=== PATIENT | male | born 1965 | race Caucasian/White ===

== ENCOUNTER 2017-05-22 17:54 | Emergency (ER) | payer BC, OTHER ==
[2017-05-22 18:19] VITALS: BP 125/69; PULSE 85; TEMP 98.7; BMI 32.3
[2017-05-22] MEDS ORDERED: SODIUM CHLORIDE 1,000 ML IV STA (20:30)
[2017-05-22] MEDS ORDERED: FAMOTIDINE 20 MG/50 ML IVPB 20 MG/50 ML MG IVPB ONE ×2 (20:30→21:06)
--- NOTE | 2017-05-22 20:32 | PDOC ---
History of Present Illness - General Chief Complaint: Pain, Acute Stated Complaint: NAUSEA/VOMITING Time Seen by Provider: 05/22/17 20:14 History Source: Patient - History of Present Illness Initial Comments: 05/22/17 20:52 52 year old male with NVD and RLQ abdominal pain x 1 day after eating cooked food brought from [place] yesterday. denies fever/ chills, urinary symptoms, chest pain, diaphoresis, dizziness, headache Past History - Past Medical History Allergies/Adverse Reactions: Allergies Allergy/AdvReac Type Severity Reaction Status Date / Time Penicillins Allergy Verified 05/22/17 18:15 Home Medications: Ambulatory Orders [place]-3/Dha/Epa/Fish Oil [Fish Oil Dr 500 mg Softgel] 500 mg PO DAILY 08/05/15 Naproxen [Naprosyn -] 500 mg PO BID 09/04/15 Atorvastatin Ca [Lipitor] 20 mg PO DAILY tablet 11/25/15 Anemia: No Asthma: No Cancer: No Cardiac Disorders: No CVA: No COPD: No CHF: No Dementia: No Diabetes: No GI Disorders: No Disorders: No HTN: No Hypercholesterolemia: Yes Liver Disease: No Seizures: No Thyroid Disease: No - Surgical History Appendectomy: Yes Orthopedic Surgery: Yes (BACK SURGERY AND WRIST) - Immunization History Immunization Up to Date: Yes - Suicide/Smoking/Psychosocial Hx Smoking Status: No Smoking History: Never smoked Number of Cigarettes Smoked Daily: 0 Hx Alcohol Use: No Drug/Substance Use Hx: No Substance Use Type: None Hx Substance Use Treatment: No Review of Systems - Review of Systems Able to Perform ROS?: Yes Is the patient limited [place]ian proficient: No Constitutional: No: Symptoms Reported, See HPI, Chills, Diaphoresis, Fever, Loss of Appetite, Malaise, Night Sweats, Weakness, Weight Stable, Unintentional Wgt. Loss, Unexplained wgt Loss, Other ABD/GI: Yes: Diarrhea, Nausea, Vomiting, Abdominal cramping. No: Symptoms Reported, See HPI, Abdominal Distended, Abd. Pain w/ defecation, Blood Streaked Bowels, Constipated, Difficulty Swallowing, Poor Appetite, Poor Fluid Intake, Rectal Bleeding, Indigestion, Tarry Stools, Other : Yes: Testicular Pain (worse with cough or lifting for several months. no acute pain at this time ) Neurological: No: Symptoms reported, See HPI, Headache, Numbness, Paresthesia, Pre-Existing Deficit, Seizure, Tingling, Tremors, Weakness, Unsteady Gait, Ataxia, Dizziness, Other *Physical Exam - Vital Signs Last Vital Signs Temp Pulse Resp BP Pulse Ox 98.7 F 85 19 125/69 98 05/22/17 18:15 05/22/17 18:15 05/22/17 18:15 05/22/17 18:15 05/22/17 18:15 - Physical Exam General Appearance: Yes: Apparent Distress Respiratory/Chest: positive: Lungs Clear, Normal Breath Sounds Gastrointestinal/Abdominal: positive: Soft, Other (hyperactive bowel sounds, minimal RLQ tenderness) Male Genitalia: positive: normal genitalia, inguinal hernia (questionable right inguinal hernia. no obvious hernia appreciated. ), other (+ cremasteric reflex) . negative: testicular tenderness, testicular mass Extremity: positive: Normal Capillary Refill, Normal Inspection, Normal Range of Motion Integumentary: positive: Normal Color, Dry, Warm Neurologic: positive: Fully Oriented, Alert, Normal Mood/Affect Heart Score/ECG Review - ECG Intrepretation Rhythm: Regular Rhythm Comment:: 05/22/17 21:28 NSR: 79 bpm ED Treatment Course - LABORATORY CBC & Chemistry Diagram: 05/22/17 20:30 05/22/17 20:30 Progress Note - Progress Note Progress Note: A: gastroenteritis P: CBC CMP Lipase UA IVF zofran Famotidine *DC/Admit/Observation/Transfer Diagnosis at time of Disposition: Acute gastroenteritis - Discharge Dispostion Disposition: HOME - Referrals Referrals: Cathy Sena MD [Primary Care Provider] - Call tomorrow - Patient Instructions Printed Discharge Instructions: Viral Gastroenteritis, Gastroenteritis Diet Additional Instructions: drink plenty of fluids. (smart water, Gatorade. ) start a BRAT (Bananas, rice, apples, toast) diet - Post Discharge Activity Forms/Work/School Notes: Back to Work
[2017-05-22] MEDS ORDERED: ONDANSETRON 4 MG/2 ML VIAL IVPUSH ONE (20:45)
[2017-05-22 20:58] LABS: BASO % 0.2 % (0-2.0); EOS % 0.2 % (0-4.5); HEMATOCRIT 44.2 % (35.4-49); HEMOGLOBIN 15.1 GM/dL (11.7-16.9); LYMPH % 19.4 % (8-40); MCH 30.1 pg (25.7-33.7); MCHC 34.3 g/dl (32.0-35.9); MEAN PLT VOLUME 8.5 fl (7.5-11.1); MONO % 8.6 % (3.8-10.2); NEUT % 71.6 % (42.8-82.8); PLATELET COUNT 198 K/MM3 (134-434); RBC 5.02 M/mm3 (4.00-5.60); RDW 13.2 % (11.9-15.9); WHITE BLOOD COUNT 7.4 K/mm3 (4.0-10.0)
[2017-05-22 21:39] LABS: ANION GAP 6 (8-16); BILIRUBIN,TOTAL 0.8 mg/dL (0.2-1.0); BLOOD UREA NITROGEN 19 mg/dL (7-18); CALCIUM 8.2 mg/dL (8.5-10.1); CHLORIDE 105 mmol/L (98-107); CO2 26 mmol/L (21-32); CREATININE 0.8 mg/dL (0.7-1.3); GLUCOSE,RANDOM 93 mg/dL (74-106); LIPASE 95 U/L (73-393); SGPT/ALT 49 U/L (12-78); SODIUM 137 mmol/L (136-145); TOT PROT 7.2 g/dl (6.4-8.2)
[2017-05-22 21:40] LABS: ALK PHOS 90 U/L (45-117)
[2017-05-22 21:44] LABS: URINE APPEARANCE SLCLOUDY; URINE BILIRUBIN NEGATIVE (NEGATIVE); URINE BLOOD NEGATIVE (NEGATIVE); URINE COLOR AMBER; URINE GLUCOSE (UA) NEGATIVE (NEGATIVE); URINE KETONE NEGATIVE (NEGATIVE); URINE LEUK ESTERASE NEGATIVE (NEGATIVE); URINE NITRITE NEGATIVE (NEGATIVE)
[2017-05-22 21:47] LABS: POTASSIUM 3.9 mmol/L (3.5-5.1)
[2017-05-22 21:48] LABS: SGOT/AST 25 U/L (15-37)
[2017-05-22 22:03] LABS: URINE PROTEIN 1+ (NEGATIVE)
[2017-05-22 22:45] LABS: URINE MUCUS MANY
--- NOTE | 2017-05-23 15:11 | EKG ---
Test Reason : Blood Pressure : / mmHG Vent. Rate : 079 BPM Atrial Rate : 079 BPM P-R Int : 194 ms QRS Dur : 086 ms QT Int : 366 ms P-R-T Axes : 049 012 028 degrees QTc Int : 419 ms NORMAL SINUS RHYTHM NORMAL ECG NO PREVIOUS ECGS AVAILABLE Confirmed by Marcos Abbott MD ([id number]) on 05/23/2017 3:10:55 PM Referred By: Confirmed By:Marcos Abbott MD
== END 2017-05-22 23:35 | disposition home or self-care (01) ==
LOC: JER 17:54
DX: K52.9 Noninfective gastroenteritis and colitis, unspecified (principal)
CPT/HCPCS: 36415; 80053; 81003; 81015; 83690; 85025; 93005; 93010; 99282-25

== ENCOUNTER 2021-10-07 05:26 | Emergency (ER) | payer BC, OTHER ==
[2021-10-07 05:55] VITALS: BMI 33.2
[2021-10-07] MEDS ORDERED: SODIUM CHLORIDE 1,000 ML IV STA (06:00)
[2021-10-07] MEDS ORDERED: FAMOTIDINE 20 MG/50 ML IVPB 20 MG/50 ML MG IVPB ONE ×2 (06:00→06:07)
[2021-10-07] MEDS ORDERED: ONDANSETRON 4 MG/2 ML VIAL IVPUSH ONE (06:00)
[2021-10-07] MEDS ORDERED: ONDANSETRON 4 MG/2 ML VIAL ONE (06:07)
[2021-10-07 06:55] LABS: CHLORIDE 107 mmol/L (98-107); SODIUM 140 mmol/L (136-145)
[2021-10-07 06:57] LABS: ALBUMIN 3.8 g/dl (3.4-5.0); CALCIUM 8.7 mg/dL (8.5-10.1); LIPASE 104 U/L (73-393)
[2021-10-07 06:58] LABS: ANION GAP 7 MMOL/L (8-16); BLOOD UREA NITROGEN 21.1 mg/dL (7-18); CO2 25 mmol/L (21-32); GLUCOSE,RANDOM 121 mg/dL (74-106)
[2021-10-07 07:00] LABS: CREATININE 0.8 mg/dL (0.55-1.3); SGPT/ALT 38 U/L (13-61)
[2021-10-07 07:01] LABS: SGOT/AST 21 U/L (15-37)
[2021-10-07 07:02] LABS: BILIRUBIN,TOTAL 1.1 mg/dL (0.2-1); TOT PROT 7.2 g/dl (6.4-8.2)
[2021-10-07 07:03] LABS: ALK PHOS 88 U/L (45-117); HEMATOCRIT 46.5 % (35.4-49); HEMOGLOBIN 15.8 GM/dL (11.7-16.9); MCHC 34.1 g/dl (32.0-35.9); MEAN CELL VOLUME 88.1 fl (80-96); MEAN PLT VOLUME 8.5 fl (7.5-11.1); PLATELET COUNT 227 10^3/uL (134-434); RBC 5.27 M/mm3 (4.00-5.60); RDW 12.4 % (11.9-15.9); WHITE BLOOD COUNT 9.2 K/mm3 (4.0-10.0)
[2021-10-07 07:12] LABS: INR 1.15 (0.83-1.09); PROTHROMBIN TIME (PATIENT) 13.2 SEC (9.7-13.0)
[2021-10-07] MEDS ORDERED: ACETAMINOPHEN 1000 MG/100 ML BAG IVPB ONE (08:26)
[2021-10-07] MEDS ORDERED: SODIUM CHLORIDE 0.9% 500 ML INFUS.BAG IV ONE (08:26)
[2021-10-07] MEDS ORDERED: ACETAMINOPHEN INJECTION 100 ML IVPB ONE (08:47)
[2021-10-07 12:00] VITALS: BP 124/71; PULSE 72; TEMP 98.1
== END 2021-10-07 11:55 | disposition home or self-care (01) ==
LOC: JER 05:26
PROC: 3E0333Z Introduction of Anti-inflammatory into Peripheral Vein, Percutaneous Approach (ICD-10-PCS; principal; 2021-10-07)
PROC: 3E033GC Introduction of Other Therapeutic Substance into Peripheral Vein, Percutaneous Approach (ICD-10-PCS; 2021-10-07)
PROC: 3E033GC Introduction of Other Therapeutic Substance into Peripheral Vein, Percutaneous Approach (ICD-10-PCS; 2021-10-07)
PROC: 3E0337Z Introduction of Electrolytic and Water Balance Substance into Peripheral Vein, Percutaneous Approach (ICD-10-PCS; 2021-10-07)
DX: R11.10 Vomiting, unspecified (principal); R19.7 Diarrhea, unspecified; R10.9 Unspecified abdominal pain
CPT/HCPCS: 0241U-QW; 36415; 71045-TC-FY; 74176-TC; 80053; 83605; 83690; 84484; 85027; 85610; 85730; 93005; 93010; 99285-25